=== PATIENT | female | born 1970 | race African-American/Black ===

== ENCOUNTER 2017-09-30 12:41 | Inpatient (IN) ==
[2017-10-07] MEDS ORDERED: GLUCAGON 1 MG VIAL IM PRN (06:16)
[2017-10-07] MEDS ORDERED: DEXTROSE 50% 25 GM/50 ML VIAL IV PRN (06:16)
[2017-10-07] MEDS ORDERED: ZOLPIDEM 5 MG TABLET PO PRN (09:37)
[2017-10-07] MEDS ORDERED: oxyCODONE/ACETAMINOPHEN 5-325 MG TABLET PO PRN (09:38)
[2017-10-07] MEDS ORDERED: CETIRIZINE 10 MG TABLET PO PRN (09:39)
[2017-10-07] MEDS ORDERED: hydrOXYzine HCL 10 MG TABLET PO PRN (09:40)
[2017-10-07] MEDS: PANTOPRAZOLE 40 MG TABLET PO SCH (10:45)
[2017-10-07] MEDS: CHLORHEXIDINE 0.12% ORAL RINSE 60 ML BOTTLE SWISH/SPIT SCH ×2 (10:45→20:58)
[2017-10-07] MEDS: ATORVASTATIN 40 MG TABLET PO SCH (10:45)
[2017-10-07] MEDS: metroNIDAZOLE 500 MG TABLET PO SCH ×2 (10:45→20:56)
[2017-10-07] MEDS: SODIUM CHLORIDE 0.9% 1,000 ML IV SCH (10:46)
[2017-10-07] MEDS: CHLORHEXIDINE 4% SOLN 118 ML BOTTLE TOP SCH ×3 (10:46→20:59)
[2017-10-07 11:09] LABS: Basophils % 0.4 % (0.0-0.8); Eosinophils # 0.3 10*3/uL (0.0-0.87); Hematocrit 35.7 VOL% (35.7-47.0); Hemoglobin 11.7 GM/DL (12.0-16.0); Immature Granulocytes % 0.8 %; Immature Granulocytes Absolute 0.07 #; Lymphocytes # 2.7 10*3/uL (1.4-4.0); Lymphocytes % 31.3 % (21.3-54.2); Mean Corpuscular HGB Conc 32.8 GM/DL (32-36); Mean Corpuscular Hemoglobin 26 PG (27-34); Mean Platelet Volume 11.1 FL (9.6-12.0); Monocytes # 0.5 10*3/uL (0.11-0.8); Monocytes % 6.3 % (1.7-12.7); Neutrophils % 58.2 % (38.7-73.9); Platelet Count 374 T/CUMM (130-400); Red Blood Count 4.52 MC/CUMM (3.8-5.5); Red Cell Distribution Width 14.7 % (9.3-17.3); White Blood Count 8.6 T/CUMM (4-12)
[2017-10-07 11:44] LABS: Albumin 3.3 G/DL (3.4-5.0); Bilirubin,Total 0.5 MG/DL (0.2-1.0); Calcium 8.5 MG/DL (8.5-10.1); Osmolality,Calculated 279.7 MOS/KG (273-304); Potassium 3.7 MMOL/L (3.5-5.1); Total Protein 7.2 G/DL (6.4-8.3)
[2017-10-07] MEDS ORDERED: MONTELUKAST 10 MG TABLET PO SCH (21:00)
[2017-10-08] MEDS ORDERED: VANCOMYCIN 1,000 MG VIAL ONE ×3 (05:34→17:13)
[2017-10-08] MEDS ORDERED: PAPAVERINE 60 MG/2 ML VIAL ONE (05:34)
[2017-10-08] MEDS ORDERED: CEFUROXIME INJ 1,500 MG in SYRINGE 1 EACH IV ONE (06:00)
[2017-10-08] MEDS ORDERED: DIAZEPAM 5 MG TABLET PO ONE (06:00)
[2017-10-08] MEDS ORDERED: FAMOTIDINE 20 MG TABLET PO ONE (06:00)
[2017-10-08] MEDS ORDERED: POTASSIUM CHLORIDE RIDER 100 ML IV ONE (07:31)
[2017-10-08] MEDS ORDERED: PHENYLEPHRINE DRIP 40 MG/250 ML PREMIX IV ONE (07:34)
[2017-10-08 08:02] LABS: Hemoglobin Heart Surgery 11.4 G/DL (12.0-16.0); PCO2 Patient Temp Venous 49.5 MM HG; PH Patient Temp Venous 7.366; PO2 Patient Temp Venous 43.4 MM HG; Potassium Heart/CVR 3.5 MMOL/L (3.5-5.1); VBG Base Excess 1.8 MEQ/L (0-4); VBG HCO3 27.7 MEQ/L (24-28); VBG Oxygen Saturation 80.4 %; VBG PCO2 49.5 MMHG (41-51); VBG PH 7.366; VBG PO2 43.4 MMHG (17-40)
[2017-10-08 08:20] LABS: Apearance,Urine CLEAR (Clear); Bacteria,Urine Occasional /HPF (Few); Bilirubin,Urine Negative (Negative); Blood, Urine Negative (Negative); Glucose,Urine (UA) Negative (Negative); Hyaline Casts,Urine 1 /LPF (0-3); Ketones,Urine Negative (Negative); Mucus,Urine Occasional /LPF (Occasional); Nitrite,Urine Negative (Negative); Protein,Urine Negative; RBC,Urine 1 /HPF (0-4); Squamous Epithelial Cell,Urine Occasional /HPF (0-10); Urine Color Yellow (Yellow); Urine Specific Gravity 1.016 (1.001-1.035); Urine Urobilinogen < 2.0 EU/DL (0.2-1.0); WBC,Urine <1 /HPF (0-6)
[2017-10-08] MEDS ORDERED: ALBUMIN 5% 12.5 GM/250 ML VIAL IV ONE (09:14)
[2017-10-08 09:43] LABS: Hematocrit Heart Surgery 20.1 PERCENT (37-47); Hemoglobin Heart Surgery 6.4 G/DL (12.0-16.0); PCO2 Patient Temp Venous 34.9 MM HG; PH Patient Temp Venous 7.464; PO2 Patient Temp Venous 38.4 MM HG; Potassium Heart/CVR 4.2 MMOL/L (3.5-5.1); VBG Base Excess 1.7 MEQ/L (0-4); VBG HCO3 25.8 MEQ/L (24-28); VBG Oxygen Saturation 83.4 %; VBG PCO2 40.4 MMHG (41-51); VBG PH 7.42; VBG PO2 47.2 MMHG (17-40)
[2017-10-08] MEDS ORDERED: INSULIN REGULAR 100 UNIT/ML ONE (09:54)
[2017-10-08 10:15] LABS: Hematocrit Heart Surgery 23.7 PERCENT (37-47); Hemoglobin Heart Surgery 7.6 G/DL (12.0-16.0); PCO2 Patient Temp Venous 33.1 MM HG; PH Patient Temp Venous 7.473; PO2 Patient Temp Venous 47.9 MM HG; Potassium Heart/CVR 3.4 MMOL/L (3.5-5.1); VBG Base Excess 0.9 MEQ/L (0-4); VBG HCO3 25.1 MEQ/L (24-28); VBG Oxygen Saturation 88.2 %; VBG PCO2 34.7 MMHG (41-51); VBG PH 7.458; VBG PO2 51.3 MMHG (17-40)
[2017-10-08] MEDS: metroNIDAZOLE 500 MG TABLET PO SCH (10:23)
[2017-10-08] MEDS: ATORVASTATIN 40 MG TABLET PO SCH (10:24)
[2017-10-08] MEDS: CHLORHEXIDINE 0.12% ORAL RINSE 60 ML BOTTLE SWISH/SPIT SCH ×2 (10:24→20:38)
[2017-10-08] MEDS: PANTOPRAZOLE 40 MG TABLET PO SCH (10:24)
[2017-10-08 11:07] LABS: Hemoglobin Heart Surgery 10.4 G/DL (12.0-16.0); PCO2 Patient Temp Venous 45.3 MM HG; PH Patient Temp Venous 7.29; VBG Base Excess -4.8 MEQ/L (0-4); VBG HCO3 20.4 MEQ/L (24-28); VBG Oxygen Saturation 98.9 %; VBG PCO2 45.3 MMHG (41-51); VBG PH 7.29
[2017-10-08] MEDS ORDERED: ALBUMIN 25% 25 GM/100 ML VIAL IV ONE (11:13)
[2017-10-08] MEDS ORDERED: PROTAMINE SULFATE 250 MG/25 ML VIAL IV ONE (11:13)
[2017-10-08] MEDS ORDERED: DEXTROSE 5% KCL 20 MEQ 20 MEQ/1,000 ML BAG IV ONE (11:13)
[2017-10-08] MEDS ORDERED: SODIUM BICARBONATE 50 MEQ/50 ML SYRINGE IV ONE ×4 (11:13→19:26)
[2017-10-08] MEDS ORDERED: MAGNESIUM SULFATE 1 GM/2 ML VIAL ONE (11:13)
[2017-10-08] MEDS ORDERED: methylPREDNISolone SOD SUC 1,000 MG/8 ML VIAL ONE (11:13)
[2017-10-08] MEDS ORDERED: HEPARIN 10,000 UNIT/10 ML VIAL ONE (11:13)
[2017-10-08] MEDS ORDERED: PROTAMINE SULFATE 50 MG/5 ML VIAL IV ONE ×3 (11:14→15:52)
[2017-10-08] MEDS ORDERED: FUROSEMIDE 20 MG/2 ML VIAL ONE (11:14)
[2017-10-08] MEDS ORDERED: MANNITOL 12.5 GM/50 ML VIAL IV ONE (11:14)
[2017-10-08 11:59] LABS: ABG Base Excess -4.9 MMOL/L (-2.5-2.5); ABG HCO3 23.1 MMOL/L (20-26); ABG Oxygen Saturation 85.4 % (95-100); ABG PCO2 55.4 MM HG (35-48); ABG PH 7.238 (7.35-7.45); ABG PO2 55.9 MM HG (80-95); ABG TCO2 24.8 MMOL/L (23-27); Glucose Heart Surgery 173 MG/DL (74-106); Hemoglobin Heart Surgery 13.1 G/DL (12.0-16.0); Ionized Calcium Arterial 1.34 MMOL/L (1.21-1.46); PCO2 Patient Temp Arterial 55.4 MMHG; PH Patient Temp Arterial 7.238; PO2 Patient Temp Arterial 55.9 MM HG; Patient Temperature 37 CELCIUS; Potassium Heart/CVR 3.2 MMOL/L (3.5-5.1); Sodium Heart/CVR 137 MMOL/L (135-145)
[2017-10-08] MEDS ORDERED: EPINEPHrine 1 MG/ML VIAL ONE ×2 (12:09→12:57)
[2017-10-08] MEDS ORDERED: HEPARIN/NACL 0.9% 2 UNITS/ML 1,000 ML IV ONE (12:56)
[2017-10-08] MEDS ORDERED: CALCIUM CHLORIDE 1,000 MG/10 ML VIAL IV ONE (12:56)
[2017-10-08] MEDS ORDERED: DOBUTamine 500 MG/250 ML PREMIX IV ONE (12:56)
[2017-10-08] MEDS ORDERED: PHENYLEPHRINE DRIP 20 MG/250 ML PREMIX IV ONE (12:56)
[2017-10-08] MEDS ORDERED: SEVOFLURANE 1 UNIT/15 MINUTE INH ONE ×2 (12:56→19:28)
[2017-10-08] MEDS ORDERED: MINERAL OIL/PETROLATUM OPH OINT 3.5 GM TUBE ONE (12:57)
[2017-10-08] MEDS ORDERED: ePHEDrine 50 MG/ML AMP ONE (12:57)
[2017-10-08] MEDS ORDERED: SUFentanil 250 MCG/5 ML AMP ONE ×2 (12:57→19:27)
[2017-10-08] MEDS ORDERED: MIDAZOLAM 10 MG/2 ML VIAL ONE ×2 (12:57→19:28)
[2017-10-08] MEDS ORDERED: SODIUM CHLORIDE 0.9% 1,000 ML IV ONE (12:58)
[2017-10-08] MEDS ORDERED: diphenhydrAMINE 50 MG/1 ML VIAL ONE (12:58)
[2017-10-08] MEDS ORDERED: AMIODARONE 150 MG/3 ML VIAL ONE (12:58)
[2017-10-08] MEDS ORDERED: ETOMIDATE 40 MG/20 ML VIAL IV ONE ×2 (12:58→19:28)
[2017-10-08] MEDS ORDERED: SODIUM CHLORIDE 0.9% 100 ML IV ONE (12:58)
[2017-10-08] MEDS ORDERED: VECURONIUM 10 MG VIAL IV ONE ×2 (12:58→19:28)
[2017-10-08] MEDS ORDERED: SODIUM CHLORIDE 0.9% 250 ML IV ONE (12:58)
[2017-10-08] MEDS ORDERED: NITROGLYCERIN DRIP 50 MG/250 ML BOTTLE IV ONE (12:58)
[2017-10-08] MEDS ORDERED: LACTATED RINGERS 2,000 ML IV ONE (12:58)
[2017-10-08] MEDS ORDERED: methylPREDNISolone SOD SUC 125 MG/2 ML VIAL ONE (12:58)
[2017-10-08] MEDS: LACTATED RINGERS 250 ML IV PRN ×3 (13:00→13:32)
[2017-10-08] MEDS ORDERED: DEXTROSE 50% 25 GM/50 ML VIAL IV PRN ×2 (13:04)
[2017-10-08] MEDS ORDERED: NITROPRUSSIDE 100 MG in DEXTROSE 5% 250 ML IV PRN (13:04)
[2017-10-08] MEDS ORDERED: INSULIN REGULAR 100 UNIT/ML IV ONE (13:04)
[2017-10-08] MEDS ORDERED: INSULIN REGULAR DRIP 100 ML IV SCH (13:04)
[2017-10-08] MEDS ORDERED: MAGNESIUM SULF RIDER 4 GM in PREMIX 1 EACH IV PRN (13:04)
[2017-10-08] MEDS ORDERED: MIDAZOLAM 10 MG/2 ML VIAL IV PRN (13:04)
[2017-10-08] MEDS ORDERED: SODIUM CHLORIDE 0.45% 1,000 ML IV SCH ×2 (13:04)
[2017-10-08] MEDS ORDERED: INSULIN REGULAR 100 UNIT/ML IV PRN (13:04)
[2017-10-08] MEDS ORDERED: ONDANSETRON 4 MG/2 ML VIAL IV PRN (13:04)
[2017-10-08] MEDS ORDERED: MIDAZOLAM 2 MG/2 ML VIAL IV PRN (13:04)
[2017-10-08] MEDS ORDERED: POTASSIUM CHLORIDE RIDER 10 MEQ in PREMIX 1 EACH IV PRN (13:04)
[2017-10-08] MEDS ORDERED: MAGNESIUM SULF RIDER 2 GM in PREMIX 1 EACH IV PRN (13:04)
[2017-10-08] MEDS ORDERED: ACETAMINOPHEN 650 MG SUPP RECTAL PRN (13:04)
[2017-10-08] MEDS ORDERED: VECURONIUM 10 MG VIAL IV PRN ×2 (13:04)
[2017-10-08] MEDS ORDERED: CALCIUM CHLORIDE 1,000 MG/10 ML SYRINGE IV PRN (13:04)
[2017-10-08] MEDS ORDERED: MORPHINE 2 MG/1 ML SYRINGE IV PRN (13:04)
[2017-10-08 13:26] LABS: Basophils % 0.2 % (0.0-0.8); Eosinophils # 0.1 10*3/uL (0.0-0.87); Eosinophils % 0.5 % (0.00-10.9); Hemoglobin 12.4 GM/DL (12.0-16.0); Immature Granulocytes % 1.1 %; Immature Granulocytes Absolute 0.25 #; Lymphocytes # 3.9 10*3/uL (1.4-4.0); Lymphocytes % 17.6 % (21.3-54.2); Mean Corpuscular HGB Conc 31.8 GM/DL (32-36); Mean Corpuscular Hemoglobin 27 PG (27-34); Mean Corpuscular Volume 83.5 FL (87-102); Mean Platelet Volume 10.7 FL (9.6-12.0); Monocytes # 1.2 10*3/uL (0.11-0.8); Monocytes % 5.4 % (1.7-12.7); Neutrophils # 16.7 10*3/uL (1.4-7.4); Neutrophils % 75.2 % (38.7-73.9); Platelet Count 292 T/CUMM (130-400); Red Blood Count 4.67 MC/CUMM (3.8-5.5); Red Cell Distribution Width 15.2 % (9.3-17.3); White Blood Count 22.2 T/CUMM (4-12)
[2017-10-08 13:52] LABS: INR 1.3; PT Patient Result 13.2 SECS
[2017-10-08 13:52] LABS: Albumin 2.3 G/DL (3.4-5.0); Bilirubin,Total 0.9 MG/DL (0.2-1.0); Calcium 10.6 MG/DL (8.5-10.1); Magnesium 1.8 MG/DL (1.8-2.4); Osmolality,Calculated 290.1 MOS/KG (273-304); Potassium 2.9 MMOL/L (3.5-5.1); Total Protein 4.5 G/DL (6.4-8.3)
[2017-10-08 13:53] LABS: ABG Base Excess -5.4 MMOL/L (-2.5-2.5); ABG Oxygen Saturation 97.5 % (95-100); ABG PCO2 57.7 MM HG (35-48); ABG PH 7.216 (7.35-7.45); ABG TCO2 21.3 MMOL/L (23-27); Glucose Heart Surgery 166 MG/DL (74-106); Hematocrit Heart Surgery 36.6 PERCENT (37-47); Hemoglobin Heart Surgery 11.9 G/DL (12.0-16.0)
[2017-10-08 13:56] LABS: Hemoglobin Heart Surgery 12.3 G/DL (12.0-16.0); PCO2 Patient Temp Venous 69.5 MM HG; PH Patient Temp Venous 7.181; PO2 Patient Temp Venous 53.2 MM HG; Potassium Heart/CVR 3.1 MMOL/L (3.5-5.1); VBG Base Excess -4.3 MEQ/L (0-4); VBG HCO3 20.5 MEQ/L (24-28); VBG Oxygen Saturation 76.7 %; VBG PCO2 69.5 MMHG (41-51); VBG PH 7.181; VBG PO2 53.2 MMHG (17-40)
[2017-10-08 13:57] LABS: Partial Thromboplastin Time 49.4 SECS (0-40)
[2017-10-08] MEDS: ALBUMIN 5% 12.5 GM in PREMIX 1 EACH IV PRN ×5 (14:00→16:30)
[2017-10-08] MEDS: PHENYLEPHRINE DRIP 40 MG/250 ML PREMIX IV PRN (14:00)
[2017-10-08] MEDS: POTASSIUM CHLORIDE RIDER 20 MEQ in PREMIX 1 EACH IV PRN ×6 (14:00→23:12)
[2017-10-08 14:13] LABS: CKMB % 7.8 %
[2017-10-08 14:35] LABS: Band Neutrophils 3 % (0-10); Lymphocytes 17 % (20-55); Segmented Neutrophils 78 % (50-85); Total Cells Counted 100
[2017-10-08 14:36] LABS: Platelet Estimate Normal; Troponin I Only 7.45 NG/ML (0.00-0.045)
[2017-10-08] MEDS ORDERED: PROPOFOL 1,000 MG/100 ML BOTTLE IV ONE (14:46)
[2017-10-08 14:48] LABS: ABG Base Excess -4.3 MMOL/L (-2.5-2.5); ABG HCO3 22.1 MMOL/L (20-26); ABG Oxygen Saturation 98.2 % (95-100); ABG PCO2 45.6 MM HG (35-48); ABG PH 7.303 (7.35-7.45); ABG PO2 133.4 MM HG (80-95); ABG TCO2 23.5 MMOL/L (23-27); Glucose Heart Surgery 159 MG/DL (74-106); Hemoglobin Heart Surgery 11.8 G/DL (12.0-16.0); Potassium Heart/CVR 3.7 MMOL/L (3.5-5.1)
[2017-10-08] MEDS: methylPREDNISolone SOD SUC 125 MG/2 ML VIAL IV SCH ×2 (15:09→19:48)
[2017-10-08] MEDS: KETOROLAC 15 MG/1 ML VIAL IV SCH ×2 (15:11→19:48)
[2017-10-08 15:48] LABS: ABG HCO3 20.3 MMOL/L (20-26); ABG Oxygen Saturation 97.5 % (95-100); ABG PCO2 38.7 MM HG (35-48); ABG PH 7.338 (7.35-7.45); ABG PO2 107.3 MM HG (80-95); ABG TCO2 21.5 MMOL/L (23-27); Glucose Heart Surgery 154 MG/DL (74-106); Hemoglobin Heart Surgery 9.7 G/DL (12.0-16.0); Potassium Heart/CVR 3.8 MMOL/L (3.5-5.1)
[2017-10-08] MEDS ORDERED: DEXMEDETOMIDINE 200 MCG in SODIUM CHLORIDE 0.9% 48 ML IV SCH (16:00)
[2017-10-08 16:20] LABS: Glucose Heart Surgery 164 MG/DL (74-106); Hemoglobin Heart Surgery 8.9 G/DL (12.0-16.0); PCO2 Patient Temp Venous 53.2 MM HG; PH Patient Temp Venous 7.276; Patient Temperature 37 CELCIUS; Potassium Heart/CVR 3.9 MMOL/L (3.5-5.1); Sodium Heart/CVR 139 MMOL/L (135-145); VBG Base Excess -2.7 MEQ/L (0-4); VBG HCO3 24.2 MEQ/L (24-28); VBG Oxygen Saturation 57.5 %; VBG PCO2 53.2 MMHG (41-51); VBG PH 7.276
[2017-10-08] MEDS ORDERED: THROMBIN TOPICAL (RECOMBINANT) 5,000 UNIT VIAL TOP ONE (18:23)
[2017-10-08 18:25] LABS: ABG Base Excess -8.1 MMOL/L (-2.5-2.5); ABG Oxygen Saturation 98.7 % (95-100); ABG PCO2 45.8 MM HG (35-48); ABG PH 7.236 (7.35-7.45); ABG PO2 231.1 MM HG (80-95); ABG TCO2 20.4 MMOL/L (23-27); Glucose Heart Surgery 199 MG/DL (74-106); Hemoglobin Heart Surgery 10.3 G/DL (12.0-16.0); Ionized Calcium Arterial 1.12 MMOL/L (1.21-1.46); PCO2 Patient Temp Arterial 45.8 MMHG; PH Patient Temp Arterial 7.236; PO2 Patient Temp Arterial 231.1 MM HG; Patient Temperature 37 CELCIUS; Potassium Heart/CVR 3.8 MMOL/L (3.5-5.1); Sodium Heart/CVR 138 MMOL/L (135-145)
[2017-10-08 19:40] LABS: ABG Base Excess -3.2 MMOL/L (-2.5-2.5); ABG HCO3 22.1 MMOL/L (20-26); ABG Oxygen Saturation 96.7 % (95-100); ABG PCO2 40.8 MM HG (35-48); ABG PH 7.352 (7.35-7.45); ABG PO2 93.1 MM HG (80-95); ABG TCO2 23.4 MMOL/L (23-27); Glucose Heart Surgery 210 MG/DL (74-106); Hemoglobin Heart Surgery 9.9 G/DL (12.0-16.0); Potassium Heart/CVR 3.8 MMOL/L (3.5-5.1)
[2017-10-08] MEDS: CEFUROXIME INJ 1,500 MG in SYRINGE 1 EACH IV SCH (19:48)
[2017-10-08] MEDS ORDERED: FUROSEMIDE 40 MG/4 ML VIAL IV ONE (20:35)
[2017-10-08 22:12] LABS: ABG Base Excess 2.1 MMOL/L (-2.5-2.5); ABG HCO3 25.5 MMOL/L (20-26); ABG Oxygen Saturation 96.4 % (95-100); ABG PCO2 35.2 MM HG (35-48); ABG PH 7.478 (7.35-7.45); ABG PO2 83.2 MM HG (80-95); ABG TCO2 26.6 MMOL/L (23-27); Glucose Heart Surgery 172 MG/DL (74-106); Hemoglobin Heart Surgery 10.2 G/DL (12.0-16.0); Potassium Heart/CVR 4.1 MMOL/L (3.5-5.1)
[2017-10-08 22:40] LABS: Troponin I Only 7.19 NG/ML (0.00-0.045)
[2017-10-08 23:06] LABS: ABG Base Excess 3.6 MMOL/L (-2.5-2.5); ABG HCO3 27.7 MMOL/L (20-26); ABG Oxygen Saturation 98.5 % (95-100); ABG PCO2 44.9 MM HG (35-48); ABG PH 7.414 (7.35-7.45); ABG TCO2 26.2 MMOL/L (23-27); Glucose Heart Surgery 169 MG/DL (74-106); Hematocrit Heart Surgery 29.8 PERCENT (37-47); Hemoglobin Heart Surgery 9.6 G/DL (12.0-16.0); Potassium Heart/CVR 4.3 MMOL/L (3.5-5.1)
[2017-10-09 00:39] LABS: ABG Base Excess 3.8 MMOL/L (-2.5-2.5); ABG HCO3 29.2 MMOL/L (20-26); ABG Oxygen Saturation 96.3 % (95-100); ABG PCO2 47.6 MM HG (35-48); ABG PH 7.405 (7.35-7.45); ABG TCO2 30.6 MMOL/L (23-27); Glucose Heart Surgery 128 MG/DL (74-106); Hemoglobin Heart Surgery 10.2 G/DL (12.0-16.0); Potassium Heart/CVR 4.4 MMOL/L (3.5-5.1)
[2017-10-09] MEDS: KETOROLAC 15 MG/1 ML VIAL IV SCH (01:12)
[2017-10-09 01:15] LABS: ABG Base Excess 3.4 MMOL/L (-2.5-2.5); ABG HCO3 28.7 MMOL/L (20-26); ABG Oxygen Saturation 96.4 % (95-100); ABG PH 7.404 (7.35-7.45); ABG PO2 93.8 MM HG (80-95); ABG TCO2 30.2 MMOL/L (23-27); Glucose Heart Surgery 121 MG/DL (74-106); Hemoglobin Heart Surgery 10.3 G/DL (12.0-16.0); Potassium Heart/CVR 4.4 MMOL/L (3.5-5.1)
[2017-10-09] MEDS: methylPREDNISolone SOD SUC 125 MG/2 ML VIAL IV SCH (01:30)
[2017-10-09 01:40] LABS: ABG Base Excess 2.9 MMOL/L (-2.5-2.5); ABG Oxygen Saturation 96.2 % (95-100); ABG PCO2 57.1 MM HG (35-48); ABG PH 7.328 (7.35-7.45); ABG PO2 84.9 MM HG (80-95); ABG TCO2 27.6 MMOL/L (23-27); Glucose Heart Surgery 128 MG/DL (74-106); Hematocrit Heart Surgery 29.9 PERCENT (37-47); Hemoglobin Heart Surgery 9.7 G/DL (12.0-16.0); Potassium Heart/CVR 4.5 MMOL/L (3.5-5.1)
[2017-10-09 02:19] LABS: ABG Base Excess 3.2 MMOL/L (-2.5-2.5); ABG HCO3 29.1 MMOL/L (20-26); ABG Oxygen Saturation 97.6 % (95-100); ABG PCO2 51.2 MM HG (35-48); ABG PH 7.373 (7.35-7.45); ABG PO2 115.7 MM HG (80-95); ABG TCO2 30.7 MMOL/L (23-27); Glucose Heart Surgery 112 MG/DL (74-106); Hemoglobin Heart Surgery 10.2 G/DL (12.0-16.0); Potassium Heart/CVR 4.6 MMOL/L (3.5-5.1)
[2017-10-09 04:07] LABS: ABG Base Excess 3.4 MMOL/L (-2.5-2.5); ABG HCO3 28.6 MMOL/L (20-26); ABG Oxygen Saturation 94.9 % (95-100); ABG PCO2 46.4 MM HG (35-48); ABG PH 7.407 (7.35-7.45); ABG PO2 74.5 MM HG (80-95); Glucose Heart Surgery 97 MG/DL (74-106); Hemoglobin Heart Surgery 9.7 G/DL (12.0-16.0); Potassium Heart/CVR 4.6 MMOL/L (3.5-5.1)
[2017-10-09 04:18] LABS: Basophils % 0.1 % (0.0-0.8); Hematocrit 26.1 VOL% (35.7-47.0); Hemoglobin 8.9 GM/DL (12.0-16.0); Immature Granulocytes % 0.6 %; Immature Granulocytes Absolute 0.11 #; Lymphocytes # 1.5 10*3/uL (1.4-4.0); Mean Corpuscular HGB Conc 34.1 GM/DL (32-36); Mean Corpuscular Hemoglobin 28 PG (27-34); Mean Corpuscular Volume 83.4 FL (87-102); Mean Platelet Volume 11.6 FL (9.6-12.0); Monocytes # 0.9 10*3/uL (0.11-0.8); Monocytes % 5.4 % (1.7-12.7); Neutrophils # 14.5 10*3/uL (1.4-7.4); Neutrophils % 84.9 % (38.7-73.9); Platelet Count 207 T/CUMM (130-400); Red Blood Count 3.13 MC/CUMM (3.8-5.5); Red Cell Distribution Width 14.9 % (9.3-17.3); White Blood Count 17.1 T/CUMM (4-12)
[2017-10-09 04:46] LABS: Albumin 3.4 G/DL (3.4-5.0); Bilirubin,Direct 0.22 MG/DL (0.0-0.20); Calcium 8.7 MG/DL (8.5-10.1); Magnesium 1.5 MG/DL (1.8-2.4); Osmolality,Calculated 291.7 MOS/KG (273-304); Potassium 4.9 MMOL/L (3.5-5.1); Total Protein 5.6 G/DL (6.4-8.3)
[2017-10-09 04:58] LABS: CKMB % 4.6 %
[2017-10-09 05:15] LABS: Troponin I Only 9.83 NG/ML (0.00-0.045)
[2017-10-09] MEDS ORDERED: FUROSEMIDE 40 MG/4 ML VIAL IV ONE (05:32)
[2017-10-09 05:40] LABS: Band Neutrophils 3 % (0-10); Lymphocytes 10 % (20-55); Platelet Estimate Adequate; Segmented Neutrophils 79 % (50-85); Total Cells Counted 100
[2017-10-09 05:41] LABS: Hypochromasia 1+; Ovalocytes Slight
[2017-10-09] MEDS: PHENYLEPHRINE DRIP 40 MG/250 ML PREMIX IV PRN (05:49)
[2017-10-09] MEDS: SODIUM CHLORIDE 0.9% 1,000 ML IV SCH (08:06)
[2017-10-09 08:12] LABS: ABG Base Excess 3.4 MMOL/L (-2.5-2.5); ABG HCO3 27.5 MMOL/L (20-26); ABG Oxygen Saturation 98.2 % (95-100); ABG PCO2 51.6 MM HG (35-48); ABG PH 7.367 (7.35-7.45); ABG TCO2 27.1 MMOL/L (23-27); Glucose Heart Surgery 138 MG/DL (74-106); Hematocrit Heart Surgery 30.7 PERCENT (37-47); Hemoglobin Heart Surgery 9.9 G/DL (12.0-16.0); Potassium Heart/CVR 4.4 MMOL/L (3.5-5.1)
[2017-10-09] MEDS: INSULIN REGULAR 100 UNIT/ML SUBCUT SCH ×4 (08:33→20:27)
[2017-10-09] MEDS: CEFUROXIME INJ 1,500 MG in SYRINGE 1 EACH IV SCH ×2 (09:52→20:28)
[2017-10-09] MEDS ORDERED: hydrOXYzine HCL 10 MG TABLET PO PRN (10:02)
[2017-10-09] MEDS: SODIUM CHLOR 0.45% KCL 20 MEQ 20 MEQ/1,000 ML BAG IV SCH (10:50)
[2017-10-09] MEDS: CHLORHEXIDINE 0.12% ORAL RINSE 60 ML BOTTLE SWISH/SPIT SCH ×2 (14:03→20:29)
[2017-10-09] MEDS: FUROSEMIDE 40 MG/4 ML VIAL IV SCH ×2 (14:03→21:35)
[2017-10-09 14:51] LABS: CKMB % 2.7 %
[2017-10-09 15:04] LABS: Troponin I Only 8.53 NG/ML (0.00-0.045)
[2017-10-09] MEDS: MORPHINE 10 MG/1 ML VIAL IV PRN ×2 (20:27→22:45)
[2017-10-09] MEDS: ATORVASTATIN 40 MG TABLET PO SCH (20:29)
[2017-10-09] MEDS ORDERED: METOPROLOL TARTRATE 25 MG TABLET PO SCH (21:00)
[2017-10-10] MEDS: INSULIN REGULAR 100 UNIT/ML SUBCUT SCH ×6 (00:15→20:28)
[2017-10-10 02:35] LABS: Basophils % 0.1 % (0.0-0.8); Hematocrit 27.3 VOL% (35.7-47.0); Hemoglobin 9.4 GM/DL (12.0-16.0); Immature Granulocytes % 0.6 %; Immature Granulocytes Absolute 0.13 #; Lymphocytes # 1.5 10*3/uL (1.4-4.0); Lymphocytes % 6.9 % (21.3-54.2); Mean Corpuscular HGB Conc 34.4 GM/DL (32-36); Mean Corpuscular Hemoglobin 29 PG (27-34); Mean Corpuscular Volume 83.5 FL (87-102); Mean Platelet Volume 11.4 FL (9.6-12.0); Monocytes # 1.3 10*3/uL (0.11-0.8); Monocytes % 5.7 % (1.7-12.7); Neutrophils # 18.9 10*3/uL (1.4-7.4); Neutrophils % 86.7 % (38.7-73.9); Platelet Count 184 T/CUMM (130-400); Red Blood Count 3.27 MC/CUMM (3.8-5.5); Red Cell Distribution Width 15.8 % (9.3-17.3); White Blood Count 21.8 T/CUMM (4-12)
[2017-10-10 03:06] LABS: Albumin 3.5 G/DL (3.4-5.0); Bilirubin,Direct 0.12 MG/DL (0.0-0.20); Bilirubin,Total 0.4 MG/DL (0.2-1.0); Calcium 8.5 MG/DL (8.5-10.1); Magnesium 2.2 MG/DL (1.8-2.4); Osmolality,Calculated 297.1 MOS/KG (273-304); Potassium 4.5 MMOL/L (3.5-5.1); Total Protein 6.3 G/DL (6.4-8.3)
[2017-10-10] MEDS ORDERED: FUROSEMIDE 100 MG/10 ML VIAL IV ONE (03:20)
[2017-10-10] MEDS ORDERED: FUROSEMIDE INJ 100 MG in SODIUM CHLORIDE 0.9% 90 ML IV SCH (03:30)
[2017-10-10] MEDS: HYDROmorphone 2 MG/1 ML VIAL IV PRN ×2 (04:21→21:55)
[2017-10-10] MEDS: tiZANidine 4 MG TABLET PO PRN ×2 (05:44→20:27)
[2017-10-10] MEDS: PHENYLEPHRINE DRIP 40 MG/250 ML PREMIX IV PRN ×2 (05:44→16:56)
[2017-10-10 05:56] LABS: VBG HCO3 24.3 MEQ/L (24-28); VBG Oxygen Saturation 34.8 %; VBG PCO2 68.1 MMHG (41-51); VBG PH 7.247; VBG PO2 26.9 MMHG (17-40)
[2017-10-10 06:13] LABS: Hypochromasia 1+; Ovalocytes Slight; Platelet Estimate Normal
[2017-10-10 08:25] LABS: CKMB % 1.4 %
[2017-10-10 08:27] LABS: Troponin I Only 8.56 NG/ML (0.00-0.045)
[2017-10-10] MEDS: CHLORHEXIDINE 0.12% ORAL RINSE 60 ML BOTTLE SWISH/SPIT SCH ×2 (09:07→20:28)
[2017-10-10] MEDS ORDERED: MAGNESIUM HYDROXIDE SUSP 30 ML UDCUP PO PRN (09:08)
[2017-10-10] MEDS: oxyCODONE/ACETAMINOPHEN 5-325 MG TABLET PO PRN ×2 (09:21→20:27)
[2017-10-10] MEDS: DOBUTamine 500 MG/250 ML PREMIX IV SCH (09:51)
[2017-10-10] MEDS: CEFUROXIME INJ 1,500 MG in SYRINGE 1 EACH IV SCH ×2 (10:07→20:28)
[2017-10-10] MEDS: FUROSEMIDE INJ 100 MG in SODIUM CHLORIDE 0.9% 90 ML IV SCH ×3 (11:37→21:54)
[2017-10-10] MEDS: SODIUM CHLOR 0.45% KCL 20 MEQ 20 MEQ/1,000 ML BAG IV SCH (16:54)
[2017-10-10] MEDS: ATORVASTATIN 40 MG TABLET PO SCH (20:27)
[2017-10-10] MEDS ORDERED: ALUMINUM/MAGNES/SIMETH MAX STR 30 ML UDCUP PO PRN (22:22)
[2017-10-11] MEDS: PHENYLEPHRINE DRIP 40 MG/250 ML PREMIX IV PRN (02:31)
[2017-10-11] MEDS: FUROSEMIDE INJ 100 MG in SODIUM CHLORIDE 0.9% 90 ML IV SCH ×3 (02:49→10:46)
[2017-10-11] MEDS: DOBUTamine 500 MG/250 ML PREMIX IV SCH ×2 (02:50→15:17)
[2017-10-11 04:49] LABS: Basophils % 0.1 % (0.0-0.8); Hematocrit 24.7 VOL% (35.7-47.0); Hemoglobin 8.2 GM/DL (12.0-16.0); Immature Granulocytes % 1.3 %; Lymphocytes # 2.4 10*3/uL (1.4-4.0); Mean Corpuscular HGB Conc 33.2 GM/DL (32-36); Mean Corpuscular Hemoglobin 28 PG (27-34); Mean Corpuscular Volume 84.6 FL (87-102); Mean Platelet Volume 11.6 FL (9.6-12.0); Monocytes # 1.4 10*3/uL (0.11-0.8); Monocytes % 5.7 % (1.7-12.7); NRBC # 0.03 10*3/uL; Neutrophils # 19.5 10*3/uL (1.4-7.4); Neutrophils % 82.9 % (38.7-73.9); Platelet Count 181 T/CUMM (130-400); Red Blood Count 2.92 MC/CUMM (3.8-5.5); Red Cell Distribution Width 15.9 % (9.3-17.3); White Blood Count 23.6 T/CUMM (4-12)
[2017-10-11 05:16] LABS: Hypochromasia 1+; Lymphocytes 8 % (20-55); Microcytosis Slight; Ovalocytes Slight; Segmented Neutrophils 89 % (50-85); Total Cells Counted 100
[2017-10-11 05:17] LABS: Platelet Estimate Adequate
[2017-10-11 05:35] LABS: Albumin 3.2 G/DL (3.4-5.0); Bilirubin,Direct 0.11 MG/DL (0.0-0.20); Calcium 7.9 MG/DL (8.5-10.1); Magnesium 2.4 MG/DL (1.8-2.4); Osmolality,Calculated 292.4 MOS/KG (273-304); Potassium 4.6 MMOL/L (3.5-5.1); Total Protein 5.9 G/DL (6.4-8.3)
[2017-10-11] MEDS: CEFUROXIME INJ 1,500 MG in SYRINGE 1 EACH IV SCH ×2 (09:52→20:18)
[2017-10-11] MEDS: INSULIN REGULAR 100 UNIT/ML SUBCUT SCH ×4 (09:55→20:20)
[2017-10-11] MEDS: CHLORHEXIDINE 0.12% ORAL RINSE 60 ML BOTTLE SWISH/SPIT SCH ×2 (09:56→20:21)
[2017-10-11] MEDS ORDERED: POLYETHYLENE GLYCOL POWDER 17 GM PACK PO PRN (10:49)
[2017-10-11] MEDS: SODIUM CHLOR 0.45% KCL 20 MEQ 20 MEQ/1,000 ML BAG IV SCH (16:56)
[2017-10-11] MEDS: FUROSEMIDE 40 MG/4 ML VIAL IV SCH (20:20)
[2017-10-11] MEDS: ATORVASTATIN 40 MG TABLET PO SCH (20:20)
[2017-10-11] MEDS: oxyCODONE/ACETAMINOPHEN 5-325 MG TABLET PO PRN (23:18)
[2017-10-11] MEDS: tiZANidine 4 MG TABLET PO PRN (23:18)
[2017-10-12 03:39] LABS: Basophils % 0.1 % (0.0-0.8); Eosinophils # 0.1 10*3/uL (0.0-0.87); Eosinophils % 0.5 % (0.00-10.9); Hemoglobin 8.6 GM/DL (12.0-16.0); Immature Granulocytes % 0.7 %; Immature Granulocytes Absolute 0.11 #; Lymphocytes % 19.6 % (21.3-54.2); Mean Corpuscular HGB Conc 31.9 GM/DL (32-36); Mean Corpuscular Hemoglobin 28 PG (27-34); Mean Corpuscular Volume 87.4 FL (87-102); Mean Platelet Volume 11.1 FL (9.6-12.0); Monocytes # 0.8 10*3/uL (0.11-0.8); NRBC # 0.07 10*3/uL; Neutrophils # 11.2 10*3/uL (1.4-7.4); Neutrophils % 74.1 % (38.7-73.9); Platelet Count 185 T/CUMM (130-400); Red Blood Count 3.09 MC/CUMM (3.8-5.5); Red Cell Distribution Width 15.8 % (9.3-17.3); White Blood Count 15.1 T/CUMM (4-12)
[2017-10-12 04:19] LABS: Albumin 2.7 G/DL (3.4-5.0); Bilirubin,Direct 0.14 MG/DL (0.0-0.20); Bilirubin,Total 0.7 MG/DL (0.2-1.0); Magnesium 2.4 MG/DL (1.8-2.4); Osmolality,Calculated 284.7 MOS/KG (273-304); Potassium 4.2 MMOL/L (3.5-5.1); Total Protein 5.9 G/DL (6.4-8.3)
[2017-10-12] MEDS ORDERED: POTASSIUM CHLORIDE 20 MEQ TABLET PO PRN ×2 (06:39→09:58)
[2017-10-12] MEDS: INSULIN REGULAR 100 UNIT/ML SUBCUT SCH (08:26)
[2017-10-12] MEDS: CEFUROXIME INJ 1,500 MG in SYRINGE 1 EACH IV SCH (09:29)
[2017-10-12] MEDS ORDERED: METOPROLOL TARTRATE 25 MG TABLET PO SCH (09:37)
[2017-10-12] MEDS: CHLORHEXIDINE 0.12% ORAL RINSE 60 ML BOTTLE SWISH/SPIT SCH ×2 (09:54→21:35)
[2017-10-12] MEDS: DOBUTamine 500 MG/250 ML PREMIX IV SCH (09:57)
[2017-10-12] MEDS ORDERED: ACETAMINOPHEN 325 MG TABLET PO PRN (09:58)
[2017-10-12] MEDS ORDERED: ONDANSETRON 4 MG/2 ML VIAL IV PRN (09:58)
[2017-10-12] MEDS ORDERED: GLUCAGON 1 MG VIAL IM PRN ×2 (09:58)
[2017-10-12] MEDS ORDERED: ALUMINUM/MAGNES/SIMETH MAX STR 30 ML UDCUP PO PRN (09:58)
[2017-10-12] MEDS ORDERED: DEXTROSE 50% 25 GM/50 ML VIAL IV PRN ×2 (09:58)
[2017-10-12] MEDS ORDERED: ZALEPLON 5 MG CAPSULE PO PRN (09:58)
[2017-10-12] MEDS ORDERED: MAGNESIUM SULF RIDER 2 GM in PREMIX 1 EACH IV PRN (09:58)
[2017-10-12] MEDS ORDERED: MAGNESIUM HYDROXIDE SUSP 30 ML UDCUP PO PRN (09:58)
[2017-10-12] MEDS ORDERED: MAGNESIUM SULF RIDER 4 GM in PREMIX 1 EACH IV PRN (09:58)
[2017-10-12] MEDS ORDERED: SODIUM CHLOR 0.45% KCL 20 MEQ 20 MEQ/1,000 ML BAG IV SCH (10:00)
[2017-10-12] MEDS: FUROSEMIDE 40 MG/4 ML VIAL IV SCH ×2 (10:36→17:05)
[2017-10-12] MEDS: oxyCODONE/ACETAMINOPHEN 5-325 MG TABLET PO PRN ×2 (12:32→18:35)
[2017-10-12] MEDS: ATORVASTATIN 40 MG TABLET PO SCH (21:35)
[2017-10-13 05:39] LABS: Basophils % 0.2 % (0.0-0.8); Eosinophils # 0.3 10*3/uL (0.0-0.87); Eosinophils % 2.6 % (0.00-10.9); Hematocrit 29.3 VOL% (35.7-47.0); Hemoglobin 9.7 GM/DL (12.0-16.0); Immature Granulocytes % 0.8 %; Lymphocytes % 24.2 % (21.3-54.2); Mean Corpuscular HGB Conc 33.1 GM/DL (32-36); Mean Corpuscular Hemoglobin 28 PG (27-34); Mean Corpuscular Volume 84.9 FL (87-102); Monocytes # 0.7 10*3/uL (0.11-0.8); Monocytes % 5.9 % (1.7-12.7); NRBC # 0.02 10*3/uL; Neutrophils # 8.2 10*3/uL (1.4-7.4); Neutrophils % 66.3 % (38.7-73.9); Platelet Count 259 T/CUMM (130-400); Red Blood Count 3.45 MC/CUMM (3.8-5.5); White Blood Count 12.3 T/CUMM (4-12)
[2017-10-13 06:13] LABS: Alanine Aminotransferase 31 U/L (13-56); Albumin 2.8 G/DL (3.4-5.0); Alkaline Phosphatase 91 U/L (45-117); Aspartate Amino Transferase 34 U/L (0-37); Bilirubin,Indirect 0.6 MG/DL (0.0-1.0); Blood Urea Nitrogen 28 MG/DL (7-18); Calcium 8.1 MG/DL (8.5-10.1); Glucose 134 MG/DL (74-106); Magnesium 2.5 MG/DL (1.8-2.4); Osmolality,Calculated 288.3 MOS/KG (273-304); Potassium 4.2 MMOL/L (3.5-5.1); Sodium 141 MMOL/L (136-145); Total Protein 6.3 G/DL (6.4-8.3)
[2017-10-13] MEDS: oxyCODONE/ACETAMINOPHEN 5-325 MG TABLET PO PRN (09:19)
[2017-10-13] MEDS: DOCUSATE SODIUM 100 MG CAPSULE PO SCH (09:20)
[2017-10-13] MEDS: ASPIRIN EC 325 MG TABLET PO SCH (09:20)
[2017-10-13] MEDS: PANTOPRAZOLE 40 MG TABLET PO SCH (09:20)
[2017-10-13] MEDS: FERROUS SULFATE 325 MG TABLET PO SCH (09:20)
[2017-10-13] MEDS: FUROSEMIDE 40 MG/4 ML VIAL IV SCH ×2 (09:23→17:19)
[2017-10-13] MEDS: CHLORHEXIDINE 0.12% ORAL RINSE 60 ML BOTTLE SWISH/SPIT SCH ×2 (09:23→21:24)
[2017-10-13] MEDS: ATORVASTATIN 40 MG TABLET PO SCH (21:24)
[2017-10-14 06:00] LABS: Basophils % 0.2 % (0.0-0.8); Eosinophils # 0.3 10*3/uL (0.0-0.87); Eosinophils % 2.8 % (0.00-10.9); Hematocrit 30.8 VOL% (35.7-47.0); Hemoglobin 10.2 GM/DL (12.0-16.0); Immature Granulocytes % 1.5 %; Immature Granulocytes Absolute 0.18 #; Lymphocytes # 3.1 10*3/uL (1.4-4.0); Lymphocytes % 25.3 % (21.3-54.2); Mean Corpuscular HGB Conc 33.1 GM/DL (32-36); Mean Corpuscular Hemoglobin 28 PG (27-34); Mean Corpuscular Volume 84.4 FL (87-102); Mean Platelet Volume 10.4 FL (9.6-12.0); Monocytes # 0.8 10*3/uL (0.11-0.8); Monocytes % 6.4 % (1.7-12.7); NRBC # 0.02 10*3/uL; Neutrophils # 7.7 10*3/uL (1.4-7.4); Neutrophils % 63.8 % (38.7-73.9); Platelet Count 334 T/CUMM (130-400); Red Blood Count 3.65 MC/CUMM (3.8-5.5); Red Cell Distribution Width 14.5 % (9.3-17.3); White Blood Count 12.2 T/CUMM (4-12)
[2017-10-14 06:27] LABS: Alanine Aminotransferase 30 U/L (13-56); Albumin 3.1 G/DL (3.4-5.0); Alkaline Phosphatase 101 U/L (45-117); Aspartate Amino Transferase 23 U/L (0-37); Bilirubin,Indirect 0.5 MG/DL (0.0-1.0); Blood Urea Nitrogen 25 MG/DL (7-18); Calcium 8.7 MG/DL (8.5-10.1); Glucose 106 MG/DL (74-106); Magnesium 2.2 MG/DL (1.8-2.4); Osmolality,Calculated 280.5 MOS/KG (273-304); Potassium 4.2 MMOL/L (3.5-5.1); Sodium 139 MMOL/L (136-145); Total Protein 6.5 G/DL (6.4-8.3)
[2017-10-14] MEDS: CHLORHEXIDINE 0.12% ORAL RINSE 60 ML BOTTLE SWISH/SPIT SCH ×2 (09:41→22:04)
[2017-10-14] MEDS: FERROUS SULFATE 325 MG TABLET PO SCH (09:41)
[2017-10-14] MEDS: FUROSEMIDE 40 MG/4 ML VIAL IV SCH ×2 (09:41→15:53)
[2017-10-14] MEDS: DOCUSATE SODIUM 100 MG CAPSULE PO SCH (09:41)
[2017-10-14] MEDS: PANTOPRAZOLE 40 MG TABLET PO SCH (09:41)
[2017-10-14] MEDS: ASPIRIN EC 325 MG TABLET PO SCH (09:41)
[2017-10-14] MEDS: ATORVASTATIN 40 MG TABLET PO SCH (22:03)
[2017-10-14] MEDS: oxyCODONE/ACETAMINOPHEN 5-325 MG TABLET PO PRN (22:03)
[2017-10-15] MEDS: FERROUS SULFATE 325 MG TABLET PO SCH (08:32)
[2017-10-15] MEDS: FUROSEMIDE 40 MG/4 ML VIAL IV SCH ×2 (08:33→17:03)
[2017-10-15] MEDS: DOCUSATE SODIUM 100 MG CAPSULE PO SCH (08:33)
[2017-10-15] MEDS: CHLORHEXIDINE 0.12% ORAL RINSE 60 ML BOTTLE SWISH/SPIT SCH ×2 (08:33→21:44)
[2017-10-15] MEDS: PANTOPRAZOLE 40 MG TABLET PO SCH (08:33)
[2017-10-15] MEDS: ASPIRIN EC 325 MG TABLET PO SCH (08:33)
[2017-10-15] MEDS: oxyCODONE/ACETAMINOPHEN 5-325 MG TABLET PO PRN (21:22)
[2017-10-15] MEDS: ATORVASTATIN 40 MG TABLET PO SCH (21:43)
[2017-10-16 05:38] LABS: Basophils % 0.2 % (0.0-0.8); Eosinophils # 0.4 10*3/uL (0.0-0.87); Eosinophils % 2.8 % (0.00-10.9); Hemoglobin 11.6 GM/DL (12.0-16.0); Immature Granulocytes % 4.2 %; Lymphocytes # 4.3 10*3/uL (1.4-4.0); Lymphocytes % 29.8 % (21.3-54.2); Mean Corpuscular HGB Conc 32.2 GM/DL (32-36); Mean Corpuscular Hemoglobin 28 PG (27-34); Mean Corpuscular Volume 86.5 FL (87-102); Mean Platelet Volume 9.7 FL (9.6-12.0); Monocytes # 0.8 10*3/uL (0.11-0.8); Monocytes % 5.7 % (1.7-12.7); Neutrophils # 8.3 10*3/uL (1.4-7.4); Neutrophils % 57.3 % (38.7-73.9); Platelet Count 437 T/CUMM (130-400); Red Blood Count 4.16 MC/CUMM (3.8-5.5); Red Cell Distribution Width 14.6 % (9.3-17.3); White Blood Count 14.5 T/CUMM (4-12)
[2017-10-16 06:06] LABS: Hypochromasia 1+; Microcytosis Slight; Target Cells Slight
[2017-10-16 06:07] LABS: Platelet Estimate Increased; Polychromasia Slight
[2017-10-16 06:29] LABS: Alanine Aminotransferase 35 U/L (13-56); Albumin 3.4 G/DL (3.4-5.0); Alkaline Phosphatase 125 U/L (45-117); Aspartate Amino Transferase 25 U/L (0-37); Bilirubin,Indirect 0.5 MG/DL (0.0-1.0); Blood Urea Nitrogen 22 MG/DL (7-18); Calcium 8.8 MG/DL (8.5-10.1); Glucose 141 MG/DL (74-106); Magnesium 2.1 MG/DL (1.8-2.4); Osmolality,Calculated 279.7 MOS/KG (273-304); Potassium 3.7 MMOL/L (3.5-5.1); Sodium 138 MMOL/L (136-145); Total Protein 7.2 G/DL (6.4-8.3)
[2017-10-16 06:35] LABS: Troponin I Only 0.349 NG/ML (0.00-0.045)
[2017-10-16] MEDS: DOCUSATE SODIUM 100 MG CAPSULE PO SCH (10:22)
[2017-10-16] MEDS: FUROSEMIDE 40 MG/4 ML VIAL IV SCH ×2 (10:22→16:18)
[2017-10-16] MEDS: FERROUS SULFATE 325 MG TABLET PO SCH (10:22)
[2017-10-16] MEDS: ASPIRIN EC 325 MG TABLET PO SCH (10:23)
[2017-10-16] MEDS: PANTOPRAZOLE 40 MG TABLET PO SCH (10:23)
[2017-10-16] MEDS: CHLORHEXIDINE 0.12% ORAL RINSE 60 ML BOTTLE SWISH/SPIT SCH ×2 (10:23→21:43)
[2017-10-16] MEDS: ATORVASTATIN 40 MG TABLET PO SCH (21:43)
[2017-10-17 03:03] LABS: Basophils % 0.2 % (0.0-0.8); Eosinophils # 0.3 10*3/uL (0.0-0.87); Eosinophils % 2.4 % (0.00-10.9); Hematocrit 32.2 VOL% (35.7-47.0); Immature Granulocytes % 1.8 %; Immature Granulocytes Absolute 0.25 #; Lymphocytes # 3.6 10*3/uL (1.4-4.0); Lymphocytes % 25.9 % (21.3-54.2); Mean Corpuscular HGB Conc 34.2 GM/DL (32-36); Mean Corpuscular Hemoglobin 28 PG (27-34); Mean Platelet Volume 9.6 FL (9.6-12.0); Monocytes # 0.8 10*3/uL (0.11-0.8); Monocytes % 5.4 % (1.7-12.7); Neutrophils # 8.9 10*3/uL (1.4-7.4); Neutrophils % 64.3 % (38.7-73.9); Platelet Count 440 T/CUMM (130-400); Red Blood Count 3.88 MC/CUMM (3.8-5.5); Red Cell Distribution Width 14.6 % (9.3-17.3); White Blood Count 13.9 T/CUMM (4-12)
[2017-10-17 03:36] LABS: Alanine Aminotransferase 30 U/L (13-56); Albumin 3.2 G/DL (3.4-5.0); Alkaline Phosphatase 107 U/L (45-117); Aspartate Amino Transferase 20 U/L (0-37); Bilirubin,Indirect 0.6 MG/DL (0.0-1.0); Blood Urea Nitrogen 25 MG/DL (7-18); Calcium 8.6 MG/DL (8.5-10.1); Glucose 127 MG/DL (74-106); Magnesium 2.1 MG/DL (1.8-2.4); Osmolality,Calculated 280.7 MOS/KG (273-304); Potassium 3.7 MMOL/L (3.5-5.1); Sodium 138 MMOL/L (136-145); Total Protein 6.8 G/DL (6.4-8.3)
[2017-10-17 03:40] LABS: Troponin I Only 0.207 NG/ML (0.00-0.045)
[2017-10-17 08:03] VITALS: BP 124/80
[2017-10-17] MEDS: ASPIRIN EC 325 MG TABLET PO SCH (09:25)
[2017-10-17] MEDS: PANTOPRAZOLE 40 MG TABLET PO SCH (09:25)
[2017-10-17] MEDS: DOCUSATE SODIUM 100 MG CAPSULE PO SCH (09:25)
[2017-10-17] MEDS: FERROUS SULFATE 325 MG TABLET PO SCH (09:25)
[2017-10-17] MEDS: FUROSEMIDE 40 MG/4 ML VIAL IV SCH (09:25)
[2017-10-17] MEDS: CHLORHEXIDINE 0.12% ORAL RINSE 60 ML BOTTLE SWISH/SPIT SCH (09:26)
[2017-10-17] MEDS ORDERED: BISACODYL 10 MG SUPP RECTAL ONE (10:21)
== END 2017-10-17 13:08 | disposition home health service (06) | DRG 236 ==
LOC: N.TELES 10-07 09:00 → N.CVR 10-08 09:56 → N.ICU 10-09 11:57 → N.TELES 10-12 11:03